=== PATIENT | female | born 1960 | race Caucasian/White ===

== ENCOUNTER 2022-10-05 09:48 | Emergency (ER) | payer OTHER ==
[~2022-10-05] VITALS: Ht 149.9 cm; Wt 78.0 kg
[2022-10-05 10:02] VITALS: BP 146/76; PULSE 95; RESP 18; TEMP 98.8; O2SAT 95
[2022-10-05] MEDS ORDERED: KETOROLAC 30 MG/ML VIAL IM ONE (10:20)
[2022-10-05] MEDS ORDERED: NAPR-54 PO (11:20)
[2022-10-05] MEDS ORDERED: DICL20GE TP (11:20)
[2022-10-05 11:38] VITALS: BP 135/64; PULSE 88; RESP 18; TEMP 98.8; O2SAT 95
== END 2022-10-05 11:37 | disposition home or self-care (01) ==
LOC: MED 09:48
DX: S83.91XA Sprain of unspecified site of right knee, initial encounter (principal); Z79.899 Other long term (current) drug therapy; X58.XXXA Exposure to other specified factors, initial encounter; Y93.89 Activity, other specified; Y92.89 Other specified places as the place of occurrence of the external cause; Y99.8 Other external cause status
CPT/HCPCS: 73562; 96372; 99283; J1885; Q0092